=== PATIENT | female | born 1955 | race Caucasian/White ===

== ENCOUNTER 2019-05-31 07:34 | Day surgery (SDC) | payer MEDICAID ==
[2019-05-23 16:06] LABS: BASOPHILS # (AUTO) 0.1 X10'3 (0-0.2); BASOPHILS % (AUTO) 0.9 % (0-1); EOSINOPHILS # (AUTO) 0.3 X10'3 (0-0.9); EOSINOPHILS % (AUTO) 2.9 % (0-6); LYMPHOCYTES # (AUTO) 2.2 X10'3 (1.1-4.8); LYMPHOCYTES % (AUTO) 23.9 % (21-51); MEAN CORPUSCULAR HEMOGLOBIN 30.8 PG (27.0-31.0); MEAN CORPUSCULAR HGB CONC 33.5 g/dL (33.0-36.5); MEAN CORPUSCULAR VOLUME 91.9 FL (78-98); MEAN PLATELET VOLUME 10.5 FL (7.4-10.4); MONOCYTES # (AUTO) 0.5 X10'3 (0-0.9); MONOCYTES % (AUTO) 5.4 % (2-12); NEUTROPHILS # (AUTO) 6.1 X10'3 (1.8-7.7); NEUTROPHILS % (AUTO) 66.9 % (42-75); PRE OP HEMATOCRIT 45.2 % (35.0-45.0); PRE OP HEMOGLOBIN 15.1 g/dL (12.0-16.0); PRE OP PLATELET COUNT 223 X10'3 (140-440); RED BLOOD COUNT 4.91 X10'6 (4.20-5.60); RED CELL DISTRIBUTION WIDTH 13.5 % (11.5-14.5)
[2019-05-23 16:15] LABS: ALBUMIN 4.2 G/DL (3.4-5.0); ALKALINE PHOSPHATASE 76 IU/L (46-116); BLOOD UREA NITROGEN 25 MG/DL (7-18); BUN/CREATININE RATIO 24.3 (6.6-38.0); CALCIUM 9.5 MG/DL (8.5-10.1); CHLORIDE 104 MMOL/L (99-107); CREATININE 1.03 MG/DL (0.40-0.90); PRE OP ALT 28 U/L (30-65); PRE OP ANION GAP 11 (8-16); PRE OP AST 23 U/L (10-37); PRE OP BILIRUB, TOTAL 0.5 MG/DL (0.0-1.0); PRE OP GLUCOSE 137 MG/DL (70-104); PRE OP POTASSIUM 4.3 MMOL/L (3.4-5.1); PRE OP SODIUM 138 MMOL/L (135-145); TOTAL CARBON DIOXIDE 23.2 MMOL/L (24-32); TOTAL PROTEIN 8.3 G/DL (6.4-8.2); eGFR 54 ML/MIN
[~2019-05-31] VITALS: Ht 165.1 cm; Wt 107.7 kg
[~2019-05-31 07:34] MED LIST: DICL50TA8 PO; LIDOcaine 0.5% (5mg/ml) 50ml vial ONE; cefazolin/dext.iso 2gm/50ml 50 ML IV ONE
[2019-05-31 08:27] VITALS: BP 114/78
[2019-05-31 08:35] VITALS: BP 114/78
[2019-05-31] MEDS ORDERED: cefazolin/dext.iso 2gm/100 ML IV ONE (09:15)
[2019-05-31] MEDS ORDERED: famotidine 20mg tablet PO ONE (09:15)
[2019-05-31] MEDS ORDERED: ringers solution, lacted 1,000 ML IV SCH ×2 (09:15→12:41)
[2019-05-31] MEDS ORDERED: fentaNYL/PF 50MCG/1 ML 2ML syringe ONE ×2 (10:40→12:01)
[2019-05-31] MEDS ORDERED: midazolam 2 mg/2 ml injection ONE ×2 (10:40→11:28)
[2019-05-31] MEDS ORDERED: propofol inj 20 ML IV ONE ×2 (11:03→12:22)
[2019-05-31] MEDS ORDERED: BUPIVAcaine/PF 2.5 mg/ml (0.25%) 30ml vial ONE (11:04)
[2019-05-31] MEDS ORDERED: clindamycin phosphate 150mg/ml inj. ONE (11:16)
[2019-05-31 12:25] VITALS: BP 128/86
--- NOTE | 2019-05-31 12:25 | NUR ---
Received from OR via [facility] , accompanied by Anesthesiologist NAJMA and report given by Anesthesiolgist.20G PIV IN LEFT UE RUNNING LR AT 100. DENIES PAIN, RIGHT WRIST DRESSING IS CDI. VSS. 10L MASK ON WITH 100% SATURATIONS. Addendum: 05/31/19 at 1237 by Kartik Lofton RN, RN Amended: Links added.
[2019-05-31 12:35] VITALS: BP 115/75
[2019-05-31] MEDS ORDERED: meperidine/PF 25mg/ml syringe ONE (12:40)
[2019-05-31] MEDS ORDERED: meperidine/PF 25mg/ml syringe IV ONE (12:40)
[2019-05-31 12:45] VITALS: BP 115/71
[2019-05-31] MEDS ORDERED: proCHLORperazine 10 MG/2 ml inj IV PRN (12:45)
[2019-05-31] MEDS ORDERED: meperidine/PF 25mg/ml syringe IV PRN ×3 (12:45)
[2019-05-31] MEDS ORDERED: ondansetron/PF 4mg/2ml inj IV PRN (12:45)
[2019-05-31] MEDS ORDERED: morphine 4 MG/ML inj SYRINge IV PRN ×2 (12:45)
--- NOTE | 2019-05-31 12:55 | NUR ---
ALL DC CRITERIA HAS BEEN MET. IV TAKEN OUT WITHOUT COMPLICATIONS. ALL INSTRUCTIONS COVERED AND ALL QUESTIONS ANSWERED. DRESSINGS CDI. OUT VIA WHEELCHAIR TO PERSONAL VEHICLE WHERE PATIENT WAS SECURED IN AND DRIVEN HOME BY FAMILY. Addendum: 05/31/19 at 1313 by Kartik Lofton RN, RN Amended: Links added.
== END 2019-05-31 12:55 | disposition home or self-care (01) ==
LOC: PAS 07:34
PROVIDERS: ATTEND Orthopaedic Surgery Hand Surgery
DX: G56.01 Carpal tunnel syndrome, right upper limb (principal); M18.11 Unilateral primary osteoarthritis of first carpometacarpal joint, right hand; Z88.5 Allergy status to narcotic agent; Z88.0 Allergy status to penicillin; Z98.890 Other specified postprocedural states; Z79.899 Other long term (current) drug therapy; E11.9 Type 2 diabetes mellitus without complications; I50.9 Heart failure, unspecified; Z86.73 Personal history of transient ischemic attack (TIA), and cerebral infarction without residual deficits; Z87.891 Personal history of nicotine dependence; Z72.89 Other problems related to lifestyle; F12.90 Cannabis use, unspecified, uncomplicated
CPT/HCPCS: 25310; 25447; 64721; 80053; 82948; 85025; 93005; J2001; J2175; J2250; J2704; J3010; J3490; J7120; A4215; A4618; A7000